=== PATIENT | female | born 1945 | race Caucasian/White ===

== ENCOUNTER 2019-11-11 16:58 | Inpatient (IN) | payer OTHER, SELFPAY ==
[~2019-11-11] VITALS: Ht 147.3 cm; Wt 27.2 kg
[2019-11-11 17:31] VITALS: Ht 147.3 cm; Wt 27.2 kg
--- NOTE | 2019-11-11 17:48 | NUR ---
PT BIB [facility] FROM [facility] AND PLACED IN BED. PER MEDIC, STAFF AT [facility] CALLED 911 DUE TO NOTED LOW O2 SAT. UPON ARRIVAL, PT PLACED ON MONITOR AND DUE TO HX OF RAYNAUDS, 02 SAT PROBE PLACED ON PT'S RT EAR LOBE WITH O2 SAT NOTED TO BE 100%. PT WITH NO C/O FEVER, RESP ILLNESS OR N/V/D/C AT THIS TIME. PT CAME WITH F/C IN PLACE PLATER HELPER DRAINING YELLOW URINE. 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 ALL VS WNL WITH NO SIGNS OF DISTRESS AT THIS TIME. PT NOTED WITH GENERALIZED WEAKNESS DUE TO COMORBITIES AND STATES SHE IS AT [facility] FOR REHAB. RT AND LAB AT BEDSIDE.
[2019-11-11 18:11] LABS: PLATELET COUNT 316 x10^3mcL (130-400)
[2019-11-11 18:18] LABS: RED CELL DISTRIBUTION WIDTH 17.5 % (11.5-14.5)
[2019-11-11 18:24] LABS: CALCIUM 9.2 mg/dL (8.5-10.1); CARBON DIOXIDE 29.9 mmol/L (21-32); CHLORIDE SERUM 104 mmol/L (98-107); CREATININE SERUM 0.6 mg/dL (0.6-1.0); GLUCOSE SERUM 105 mg/dL (74-106); POTASSIUM SERUM 3.9 mmol/L (3.5-5.1); SODIUM SERUM 142 mmol/L (136-145)
[2019-11-11 18:29] LABS: ALKALINE PHOSPHATASE 63 U/L (46-116); ALT/SGPT 29 U/L (14-59); AST/SGOT 26 U/L (15-37); BILIRUBIN TOTAL 0.5 mg/dL (0.20-1.00); LACTIC DEHYDROGENASE (LDH) 125 U/L (100-190)
[2019-11-11 18:30] LABS: C REACTIVE PROTEIN 17.6 mg/dL (<=0.9); TOTAL PROTEIN, SERUM 5.2 g/dL (6.4-8.2)
[2019-11-11 18:54] LABS: BAND NEUTROPHIL 10 % (0-10); METAMYELOCTE 4 % (0-2); MONOCYTE 3 % (0-7); SEGMENTED NEUTROPHILS 78 % (37-75)
[2019-11-11 18:56] LABS: acanthocyte (spur cell) 1+; rbc morphology (normal/abnorm) ABNORMAL (NORMAL)
[2019-11-11 18:57] LABS: PLATELET MORPHOLOGY PLATELETS NORMAL
[2019-11-11 19:24] LABS: UA SPECIFIC GRAVITY 1.015 (1.005-1.035); microscopic required? YES; urine erythrocyte TRACE (NEGATIVE)
--- NOTE | 2019-11-11 19:46 | NUR ---
ASSUMING CARE OF PT AT THIS TIME. PT AWAKE AND ALERT. AA/OX4. RESP EVEN AND UNLABORED. PT DENIES CHEST PAIN OR SOB AT THIS TIME. PT ON MONITOR. MD AWARE OF HEART RATE. WILL CONT TO MONITOR.
--- NOTE | 2019-11-11 21:01 | NUR ---
PT AWAKE AND ALERT. AA/OX4. RESP EVEN AND UNLABORED. DENIES CHEST PAIN OR SOB. LAYING IN POSITION OF COMFORT. WILL CONT TO MONITOR.
--- NOTE | 2019-11-11 22:55 | NUR ---
PT AWAKE AND ALERT. AA/OX4. RESP EVEN AND UNLABORED. STATES THAT SHE IS TIRED. PT ON MONITOR. WILL CO0NT TO MONTIOR.
--- NOTE | 2019-11-11 23:39 | NUR ---
PT RESTING IN POSITION OF COMFORT. EASILY AROUSABLE. RESP EVEN AND UNLABORED. AA/OX4. PT BECOMING AGITATED STATES "IM TIRED AND I WANT TO REST." O2 IS ON PT RIGHT EAR. SATING 100%RA. DENIES CHEST PAIN OR SOB. PT ON MONITOR. WILL CONT TO MONITOR.
[2019-11-11] MEDS ORDERED: DRONABINOL PO (23:55)
[2019-11-11] MEDS ORDERED: PROTONIX40 MG/Pac1 PO (23:56)
[2019-11-11] MEDS ORDERED: ONE-DAILY MULT1 EAC1 PO (23:57)
[2019-11-11] MEDS ORDERED: ZINC SULFATE220 M2 PO (23:57)
[2019-11-11] MEDS ORDERED: MIRALAX17 GM PO (23:57)
[2019-11-11] MEDS ORDERED: ARGINAID POWDE1 EACH PO (23:58)
[2019-11-11] MEDS ORDERED: C500500 MG PO (23:58)
[2019-11-11] MEDS ORDERED: IRON65 MG PO (23:59)
[2019-11-11] MEDS ORDERED: CHOLECALCIFEROL PO (23:59)
[2019-11-12] MEDS ORDERED: KLOR-CON20 MEQ PO
[2019-11-12] MEDS ORDERED: RESTASIS0.051 OP
[2019-11-12] MEDS ORDERED: MEGESTROL (00:02)
--- NOTE | 2019-11-12 00:11 | NUR ---
PROTECTION PATCH NOTED TO COCCYX AREA AND TO LEFT SHOULDER BLADE FOR BED SORE PREVENTION. WILL CONT TO MONITOR.
--- NOTE | 2019-11-12 00:19 | NUR ---
REPORT CALLED TO KRISTIN BRANHAM TO ASSUME CARE OF PT.
[2019-11-12 01:15] VITALS: BP 115/77
--- NOTE | 2019-11-12 01:48 | NUR ---
ADMITTED A 74 YEARS OLD FEMALE FROM [facility],CAME IN VIA GURNEY ACCOMPANIED BYJacqueline R STAFF. ADMITTED WITH C/O SOB AND GENERALIZED BODY WEAKNESS. ANTIBIOTIC GIVEN IN ER AND A BOLUS OF NS 1 LITER. BREATHING EASY AND NONLABOR ON O2 AT 4L VIA NC SATTING AT 98%. TELE#49 ST 112 ON MONITOR, DENIES CHESTPAIN. SCANLON TO GRAVITY DRAINING TEA COLORE URINE. IV TO LFA G 22 HEPLOCK CDI. KEPT IN COMFORT, ORIENTED TO ROOM AND DEVICES. WITH ADMISSION ORDERS TO CARRY. WILL CONTINUE TO MONITOR.
--- NOTE | 2019-11-12 03:10 | NUR ---
APPEAR TO BE SLEEPING AT THIS TIME BREATHING EASY AND NONLABOR. SMALL WOUND TO BACK AND COCCYX WITH REDNESS NOTED. ATTEMPTED TO TAKE PHOTO PATIENT REFUSED THIS TIME AND WANTS TO REST AND SLEEP. WILL TAKEPHOTO IN AM.
[2019-11-12 04:18] LABS: MAGNESIUM 2.1 mg/dL (1.8-2.4); PHOSPHOROUS 3.2 mg/dL (2.5-4.9)
[2019-11-12 04:20] LABS: CHOLESTEROL/HDL RATIO 1.9
--- NOTE | 2019-11-12 05:23 | NUR ---
ATTEMPTED TO TAKE PHOTO OF REDNESS TO COCCYX AND BACK, PATIENT REFUSED. PATIENT STATED" YOU CANNOT DO THAT WITHOUT MY PERMISSION" UN COOPERATIVE WITH CARE.
[2019-11-12 05:25] VITALS: BP 131/93
--- NOTE | 2019-11-12 06:32 | NUR ---
BS CHECKED 25, RECHECKED BS-21, D50 IVP GIVEN PRESCRIBED. DR MORENO MADE AWARE. PATIENT AWAKE AND ALERT. WILL RECHECK BS IN 10 MIN.
--- NOTE | 2019-11-12 06:55 | NUR ---
RECHECKED BS-26 AFTER D [address] JOSH SCOTT WENT TO SEE THE PATIENT. PATIENT NOT RESPONDING WITH EYS BLINKING. VITAL SIGNS TAKEN BP-135/96, HR-116, R-22, SATTING AT 98% ON O2 AT 3L VIA NC. PER DR SCOTT SHE ORDER D5 NS. WILL ENDORSE CARE TO AM SHIFT.
--- NOTE | 2019-11-12 08:13 | NUR ---
first seen, non verbal, responsive to voices by opening eyes, pale looking elderly, very tachy, HR 111-119 this time. bs after one ampule of d50 given, per nitin nurse , 26. d5ns initiated , 75cc /hr. dnr patient
[2019-11-12 09:38] VITALS: BP 102/82
[2019-11-12 10:47] LABS: PLATELET COUNT 365 x10^3mcL (130-400)
[2019-11-12 10:48] LABS: BASOPHIL % 0 % (0-2); ERYTHROCYTE SED RATE 40 mm/hr (0-30); RED CELL DISTRIBUTION WIDTH 17.6 % (11.5-14.5)
--- NOTE | 2019-11-12 11:37 | NUR ---
400CC OF D5NS IN, BS STILL LOW, ANOTHER D50, ONE AMPULE PUSHED. NEEDS D10, INSTEAD OF ABOVE MENTIONED IVF, SUGGESTED TO TEAM, CHANGED IVF NOW. PATIENT BECOMES RESPONSIVE NOW, THOUGH, INCOMPREHENSIBLE, MORE ALERT
--- NOTE | 2019-11-12 11:54 | NUR ---
ALERT ENOUGH TO TAKE 100CC OF OJ, AND D10 INITIATED AT 50CC/HR. WILL CONTINUE TO MONITOR BS
[2019-11-12 12:31] LABS: C REACTIVE PROTEIN 11.7 mg/dL (<=0.9); CALCIUM 8.7 mg/dL (8.5-10.1); CHLORIDE SERUM 107 mmol/L (98-107); CREATININE SERUM 0.6 mg/dL (0.6-1.0); GLUCOSE SERUM 253 mg/dL (74-106); MAGNESIUM 1.8 mg/dL (1.8-2.4); PHOSPHOROUS 2.9 mg/dL (2.5-4.9); SODIUM SERUM 142 mmol/L (136-145)
[2019-11-12 13:01] LABS: FREE T4 0.82 ng/dL (0.76-1.46); FREE THYROXINE INDEX 1.8 ug/dL (1.4-4.5); T4(THYROXINE) 4.7 ug/dL (4.7-13.3)
[2019-11-12 13:23] VITALS: BP 127/83
--- NOTE | 2019-11-12 13:35 | NUR ---
very alert right now, asking for water, and juices, given asked to get food, fed lunch, did not eat much, but at least some. bs slowly up to 50. continues with d10 at 50cc /hr as instructed.
[2019-11-12 14:15] LABS: T3 TOTAL 0.42 ng/mL
--- NOTE | 2019-11-12 17:02 | NUR ---
seen by speech for swallowing eval, per ST, patient pocked food in mouth, NPO now , with ivf running. bs at this time 299, no coverage, in light of her bs lability. Continues with d10 the same rate.
--- NOTE | 2019-11-12 17:07 | NUR ---
PT WAS SEEN FOR DYSPHAGIA. PT WAS GIVEN THE TRIALS OF PUREE DIET. PT WAS POCKETING PUREE DIET TRIALS. PT HAD DIFFICULTY WITH BOLUS MANIPULATION. RECOMMENDATION NOTHING BY MOUTH ALTERNATE MODE OF FEEDING IN CONSULTATION WITH PHYSICIAN.
[2019-11-12 17:16] VITALS: BP 120/84
--- NOTE | 2019-11-12 19:10 | NUR ---
RECIEVED PT FROM DAY SHIFT NURSE. PT A/OX2. PT AWAKE AND ORIENTED TO PERSON/PLACE. ON TELE#49 READING SINUS TACH AT 111. PT ON 3L NC SATING 98%. NO S/S OF ACUTE DISTRESS NOTED. NO C/O PAIN OR DISCOMFORT. SCANLON CATH IN PLACE DRAINING YELLOW URINE BY GRAVITY. PT HAS REDNESS TO COCCYX AREA AND SMALL ULCER TO UPPER BACK WITH ADHESIVE DRESSING. PT NPO DUE TO DYSPHAGIA. IV TO LFA, MINIMAL DRAINAGE NOTED. IV RESECURED AND REDRESSED. CALL LIGHT WITHIN REACH. BED IN LOWEST POSITION. WILL CONTINUE TO MONITOR.
[2019-11-12 21:25] VITALS: BP 120/70
--- NOTE | 2019-11-13 01:00 | NUR ---
PT SLEEPING AT THIS TIME. EASILY AROUSABLE. NO SIGNS OF ACUTE DISTRESS NOTED. RR EVEN AND UNLABORED ON 3L NC. NO COMPLAINTS AT THIS TIME. ALL NEEDS/CONCERNS ADDRESSED THROUGHOUT THE SHIFT. CALL LIGHT WITHIN REACH. WILL CONTINUE TO MONITOR PT.
[2019-11-13 05:30] VITALS: BP 128/87
--- NOTE | 2019-11-13 06:23 | NUR ---
PT SLEEPING AT THIS TIME. NO SIGN OF ACUTE DISTRESS NOTED. PT ON 3L NC, RR EVEN AND UNLABORED. SCANLON CATH IN PLACE DRAINING NIEVES URINE. NO COMPLAINTS AT THIS TIME. IV TO LFA INFUSING D10 AT 50ML/HR, PATENT AND INTACT. CALL LIGHT WTHIN REACH. WILL ENDORSE CARE TO ONCOMING SHIFT NURSE.
--- NOTE | 2019-11-13 07:30 | NUR ---
PT IS AAOX3-4. TELE [address] READING SINUS TACH 115. PT DENIES C/P AND PRESSURE. PT ON O2 N/C AT 3LPM. NO COUGH OR SOB NOTED. SCANLON CATH IN PLACE, PATENT, DRAINING TEA COLORED URINE TO GRAVITY. PT HAS REDNESS TO COCCYX, SMALL WOUND TO UPPER BACK. IVF RUNNING TO LFA. SITE WNL. PT DENIES PAIN. CALL LIGHT WITHIN REACH. BED IN LOWEST POSITION. BED ALARM ON. FALL AND DROPLET PROTOCOL IN PLACE.
[2019-11-13 08:01] VITALS: BP 126/86
[2019-11-13 08:39] LABS: PLATELET COUNT 307 x10^3mcL (130-400)
--- NOTE | 2019-11-13 08:57 | NUR ---
PT NPO AT THIS TIME DUE TO FAILING SWALLOW EVAL. PT PO MEDS HELD, HEPARIN SQ, DECADRON IVP AND ZITHOMAX IVPB GIVEN. NO S/S OF PAIN. RESP EVEN AND UNLABORED. WILL CONTINUE TO MONITOR.
[2019-11-13 09:38] LABS: CALCIUM 8.7 mg/dL (8.5-10.1); CARBON DIOXIDE 25.3 mmol/L (21-32); CHLORIDE SERUM 105 mmol/L (98-107); CREATININE SERUM 0.7 mg/dL (0.6-1.0); GLUCOSE SERUM 113 mg/dL (74-106); MAGNESIUM 1.9 mg/dL (1.8-2.4); PHOSPHOROUS 2.3 mg/dL (2.5-4.9); POTASSIUM SERUM 3.4 mmol/L (3.5-5.1); SODIUM SERUM 141 mmol/L (136-145)
[2019-11-13 09:51] LABS: RED CELL DISTRIBUTION WIDTH 17.5 % (11.5-14.5)
[2019-11-13 11:41] VITALS: BP 129/75
--- NOTE | 2019-11-13 12:13 | NUR ---
BLOOD SUGAR 145. PT DENIES PAIN. PT REPOSTIONED FOR COMFORT. RESP EVEN AND UNLABORED. NO RESP DISTRESS NOTED.
--- NOTE | 2019-11-13 13:44 | NUR ---
REPORTED TO DR. MOTA THAT PT'S K+= 4.3 AND PHOS =2.3. NO NEW ORDERS AT THIS TIME.
--- NOTE | 2019-11-13 14:20 | NUR ---
RECEIVED ORDER FROM DR. POWELL, PT TO BE NPO, PT FAILED SWALLOW EVAL.
[2019-11-13 14:28] LABS: BAND NEUTROPHIL 13 % (0-10); METAMYELOCTE 1 % (0-2); MONOCYTE 3 % (0-7); MYELOCYTE 1 % (0-2)
[2019-11-13 14:29] LABS: PLATELET MORPHOLOGY PLATELETS NORMAL; SEGMENTED NEUTROPHILS 77 % (37-75); acanthocyte (spur cell) 1+; burr cell (echinocyte) 2+; rbc morphology (normal/abnorm) ABNORMAL (NORMAL)
--- NOTE | 2019-11-13 15:19 | NUR ---
REPORTED TO DR. POWELL THAT PT HAS REFUSED US ABDOMEN. RISK AND BENEFITS EXPLAINED TO PT SEVERAL TIMES, PT STILL REFUSED.
[2019-11-13 15:48] VITALS: BP 107/73
--- NOTE | 2019-11-13 16:00 | NUR ---
RECEIVED ORDER FOR DR. POWELL TO D/C D10 AT 50ML AND D/D D10 AT 75ML/HOUR IN 250ML BAG. NEW ORDER FOR D10 IV 75ML/HOUR CONTINUOUSLY IN 1000ML. REPORTED TO DR. POWELL THAT KLOR ARI PO HAS IS STILL ON JUL AND PT IS NPO SO THE ORDER WILL BE NOTED.
--- NOTE | 2019-11-13 16:07 | NUR ---
RECEIVED ORDER FOR DR. POWELL D/C [place] CHAPMAN PO, NEW ORDER KCL 20MEQ IV X 1 WITH LIDOCAINE. ORDER NOTED AND CARRIED OUT. PT MADE AWARE.
--- NOTE | 2019-11-13 17:26 | NUR ---
KCL IVBP INITIATED FOR K+=3.4.
--- NOTE | 2019-11-13 17:27 | NUR ---
BLOOD SUGAR 165. D10 IV FLUIDS AT 75ML INITIATED.
--- NOTE | 2019-11-13 18:49 | NUR ---
RESP EVEN AND UNLABORED. NO DISTRESS NOTED. PT DENIES PAIN. WILL ENDORSE ALL CARE TO NOC RN.
--- NOTE | 2019-11-13 19:27 | NUR ---
RECEIVED PT FROM DAY SHIFT NURSE. PT A/OX3. PT AWAKE AND ABLE TO RESPOND TO QUESTIONS. ON TELE$49 READING SINUS TACH AT 110. RR EVEN AND UNLABORED ON 3L NC. NO S/S OF ACUTE DISTRESS NOTED. SCANLON CATH IN PLACE DRAINING NIEVES URINE BY GRAVITY. PT HAS REDNESS TO COCCYX AREA AND SMALL ULCER TO UPPER BACK WITH ADHESIVE DRSG, CDI. IV TO LFA INFUSING D10 AT 75ML/HR. NO SIGNS OF INFILTRATION NOTED. CALL LIGHT WITHIN REACH. BED IN LOWEST POSITITION. WILL CONTINUE TO MONITOR.
[2019-11-13 20:25] VITALS: BP 107/70
--- NOTE | 2019-11-14 00:35 | NUR ---
PT RESTING IN BED AT THIS TIME. PT C/O NAUSEA, ADMINISTERED ZOFRAN PER JUL. RR EVEN AND UNLABORED ON 3L NC. PT DENIES SOB OR DIFFICULTY BREATHING. SCANLON CATH INTACT. IV TO LFA INFUSING D10 AT 75 ML/HR. NO C/O PAIN OR DISCOMFORT. PT HAS BEEN COOPERATIVE THROUGHOUT THE NIGHT. CALL LIGHT WITHIN REACH. BED IN LOWEST POSITION. WILL CONTINUE TO MONITOR.
[2019-11-14 06:11] VITALS: BP 129/83
--- NOTE | 2019-11-14 06:14 | NUR ---
PT SEEN SLEEPING IN BED AT THIS TIME. RR EVEN AND UNLABORED ON 5L OXYGEN SATING 97%. NO C/O PAIN OR NAUSEA AT THIS TIME. ALL NEEDS/CONCERNS MET THROUGHOUT THE SHIFT. WILL ENDORSE CARE TO ONCOMING SHIFT NURSE.
--- NOTE | 2019-11-14 07:15 | NUR ---
RECEIVED PT FROM INSIDE SALES SUPERVISOR, AOX3, CONFUSED AT TIMES. TELE 49 ST. LUNGS DIMINSIHED AT 5L NC, O2 AT 98, DENIES SOB/COUGH AT THE TIME, RESP E/U. ABDOMEN SOFT/FLAT, DENIES N/V/D AT THE TIME, PREVIOUS EPISODE OF NAUSEA. POSSIBLE PEG TUBE PLACEMENT. SCANLON CATHETER IN PLACED, DRAINING TEA COLORED URINE. PT NOTED VERY WEAK AND WITH LOSS OF MUSCLE MASS/WEIGHT. REDNESS TO COCCYX, ULCER TO UPPER BACK WITH ADHESIVE DRESSING. DENIES PAIN AT THIS TIME. IV TO RFA INFUSING D10 AT 75 ML/HR TO PREVENT HYPOGLYCEMIA. CALL LIGHT IN REACH, WILL CONTINUE TO MONITOR.
[2019-11-14 07:51] VITALS: BP 119/77
[2019-11-14 08:03] LABS: PLATELET COUNT 267 x10^3mcL (130-400)
[2019-11-14 08:17] LABS: RED CELL DISTRIBUTION WIDTH 17.2 % (11.5-14.5)
[2019-11-14 08:25] LABS: C REACTIVE PROTEIN 5.5 mg/dL (<=0.9); CALCIUM 8.1 mg/dL (8.5-10.1); CARBON DIOXIDE 25.7 mmol/L (21-32); CHLORIDE SERUM 103 mmol/L (98-107); CREATININE SERUM 0.5 mg/dL (0.6-1.0); GLUCOSE SERUM 107 mg/dL (74-106); MAGNESIUM 1.7 mg/dL (1.8-2.4); PHOSPHOROUS 1.9 mg/dL (2.5-4.9); SODIUM SERUM 136 mmol/L (136-145)
--- NOTE | 2019-11-14 08:40 | NUR ---
PT DID NOT RECEIVE PO MEDICATION SHE IS NPO.
[2019-11-14 09:29] LABS: C REACTIVE PROTEIN 5.2 mg/dL (<=0.9)
[2019-11-14 11:29] VITALS: BP 120/75
--- NOTE | 2019-11-14 14:37 | NUR ---
Initial Nutrition Assessment: Ashlyn Masterson Dx: UTI, COPD, Dehydration, r/o COVID-19 PMHx: UTI ,COPD, Sjogren's syndrome, raynaud's disease, osteoperosis PSHx: pt refused to answer Labs: (11/13) BH, Ca:8.1, Phos:1.9L, M.7L, H/H:9/28L Meds: Bactroban, Decadron, D10%, Megace, Remeron, Rocephin, NS IV, Theragran, Vitamin C, Zinc sulfate, Zithromax, Zofran and Heparin Diet: NPO unable to pass swallow evaluation, previously on pureed diet PO Intakes: (11/11) B:0% L:50% (11/12) NPO (11/13) NPO Ht: 4'10" Wt:60#,27kg BMI: 12.5kg/m2 (underweight) IBW: 90#41kg %IBW:66% UBW: unable to assess Age: 74 y/o female Food Allergies: NKFA Skin: redness to coccyx, small wound to upper back Ulysses:11 Edema: none GI: active bowel sounds Last BM:11/12 Per H&P, pt was not cooperative and refused H&P, [facility] Pt was brought in from [facility] for evaluation of desaturation. Per progress note 11/12, pt's hypoglycemia has improved since yesterday, was given D10. Pt was slightly hypokalemic and 10meq potassium was given. PPN is ordered to address low kcal intake. Doctor to talk to family about possible jail TPN/PEG tube placement. Psych consulted for possible eating disorder. SW spoke to patient's sister who claims pt has unreasonable fear of all kinds of food and refuses to eat anything. Pt was like this at [facility]. Per Speech therapist note 11/11: pt seen for dysphagia and was given trial of pureed diet and was pocketing food and had difficulty with bolus manipulation. Recommend: NPO and alternate mode of feeding in consultation with physician. Nursing Trigger: Appears underweight/malnourished, unintentional wt loss>10# in past month, admitted with potential risk dx Problem with: N/V/D/C: No Problems with: Chewing/Swallowing: yes, per swallow evaluation Current appetite: N/A due to current NPO status Recent wt changes: %wt change: Vitamin/Supplement: One-Daily MVI, Ascorbic acid, Zinc sulfate. Ferrous sulfate, KCL, Megace, Special Diet at Home: unable to obtain Physical activity: unable to obtain Education: unable to provide as pt refused Estimated Nutritional Needs Based on ideal body weight of 41 kg. Energy: 8919-9045 kcal/d (30-35 kcal/kg for underweight status) Protein: 62-82gm/d (1-.5-2.0gm/kg for underweight status) Fluid: 1230-1435mL/d (1 mL/kcal) or per MD. Nutrition Diagnosis 1. Swallowing difficulty related to pocketing food and having difficulty with bolus manipulation as evidenced by pt failing swallow evaluation. 2. Disordered eating pattern related to unreasonable fear of all kinds of food as evidenced by BMI: 12.5 and refusing to eat anything. Intervention 1. Recommend continue NPO due to pending PEG placement. 2. If PPN is to be started, recommend D: 10% AA:4.25% at 60ml/hr. This provides: 144g FZE=[id number], 61g vomziui=[id number]=518islp. This meets 60% caloric needs and 98% protein needs. GIR: 3.7mg/kg/min. 3. Pt is at risk of refeeding syndrome, monitor and replete electrolytes. Monitor/Evaluate Goal: NPO<3 days, PPN to meet 80% caloric needs. Monitor: NPO status, PPN intake/tolerance, Labs, GI function, Skin integrity, Weights. F/U in 2-3 days as high risk (11/15-)
--- NOTE | 2019-11-14 14:37 | NUR ---
1. Recommend continue NPO due to pending PEG placement. 2. If PPN is to be started, recommend D: 10% AA:4.25% at 60ml/hr. This provides: 144g AWC=344pyzz, 61g zdijaga=364yfxi=536wfjj. This meets 60% caloric needs and 98% protein needs. GIR: 3.7mg/kg/min. 3. Pt is at risk of refeeding syndrome, monitor and replete electrolytes.
[2019-11-14 14:41] LABS: BAND NEUTROPHIL 15 % (0-10); METAMYELOCTE 1 % (0-2); MONOCYTE 3 % (0-7); MYELOCYTE 1 % (0-2); SEGMENTED NEUTROPHILS 76 % (37-75); rbc morphology (normal/abnorm) ABNORMAL (NORMAL)
[2019-11-14 14:42] LABS: PLATELET MORPHOLOGY PLATELETS NORMAL; acanthocyte (spur cell) 1+; burr cell (echinocyte) 1+
[2019-11-14 15:57] VITALS: BP 118/71
--- NOTE | 2019-11-14 19:22 | NUR ---
RECEIVED PT FROM DAY SHIFT NURSE. AOX3, CONFUSED AT TIMES. RESPONDS TO VERBAL COMMANDS. TELE 49 ST. LUNGS DIMINSIHED AT 5L NC, O2 AT 98, DENIES SOB/COUGH AT THE TIME, RESP EVEN AND UNLABOED. DENIES N/V AT THE TIME, PREVIOUS EPISODE OF NAUSEA. POSSIBLE PEG TUBE PLACEMENT. SCANLON CATHETER IN PLACED, DRAINING TEA COLORED URINE. PT NOTED VERY WEAK AND WITH LOSS OF MUSCLE MASS/WEIGHT. REDNESS TO COCCYX, ULCER TO UPPER BACK WITH ADHESIVE DRESSING. DENIES PAIN AT THIS TIME. IV TO RFA INFUSING D10 AT 75 ML/HR TO PREVENT HYPOGLYCEMIA. CALL LIGHT IN REACH, WILL CONTINUE TO MONITOR.
[2019-11-14 20:31] VITALS: BP 98/78
--- NOTE | 2019-11-15 | NUR ---
PTS 0000 BS IS 58. RESIDENTS MADE AWARE. D50 PUSHED. PTS NEW BP 318. PPN INFUSING AT 60ML/HR. PT AWAKE AND RESPONDING TO VERBAL COMMANDS. WILL CONTINUE TO MONITOR.
--- NOTE | 2019-11-15 01:30 | NUR ---
PT SLEEPING AT THIS TIME. NO SIGNS OF ACUTE DISTRESS NOTED. RR EVEN AND UNLABORED ON 5LNC. NO SOB OR DIFFICULTY BREATHING NOTED. PPN INFUSING AT 60 ML/HR. CALL LIGHT WITHIN REACH. WILL CONTINUE TO MONITOR.
[2019-11-15 05:28] VITALS: BP 108/69
--- NOTE | 2019-11-15 06:04 | NUR ---
PT AWAKE IN BED, WATCHING TV. NO SIGNS OF ACUTE DISTRESS NOTED. RR EVEN AND UNLABOED ON 5LNC. PT DENIES SOB OR DIFFICULTY BREATHING. SCANLON CATH IN PLACE DRAINING YELLOW URINE. PPN INFUSING AT 60ML/HR, NO INFILTRATIONS NOTED. IV PATENT AND INTACT. NO C/O PAIN OR DISCOMFORT. CALL LIGHT WITHIN REACH. WILL ENDORSE CARE TO ONCOMING SHIFT NURSE.
[2019-11-15 07:58] LABS: BASOPHIL % 0.1 % (0-2); PLATELET COUNT 242 x10^3mcL (130-400); RED CELL DISTRIBUTION WIDTH 17.5 % (11.5-14.5)
[2019-11-15 08:14] LABS: ALKALINE PHOSPHATASE 67 U/L (46-116); ALT/SGPT 33 U/L (14-59); AST/SGOT 32 U/L (15-37); BILIRUBIN TOTAL 0.32 mg/dL (0.20-1.00); CALCIUM 7.9 mg/dL (8.5-10.1); CARBON DIOXIDE 22.5 mmol/L (21-32); CHLORIDE SERUM 103 mmol/L (98-107); CREATININE SERUM 0.4 mg/dL (0.6-1.0); GLUCOSE SERUM 102 mg/dL (74-106); MAGNESIUM 1.9 mg/dL (1.8-2.4); PHOSPHOROUS 2.1 mg/dL (2.5-4.9); POTASSIUM SERUM 3.2 mmol/L (3.5-5.1); SODIUM SERUM 136 mmol/L (136-145)
[2019-11-15 08:21] LABS: ALBUMIN 1.4 g/dL (3.4-5.0); TOTAL PROTEIN, SERUM 4.5 g/dL (6.4-8.2)
[2019-11-15 09:31] VITALS: BP 113/87
--- NOTE | 2019-11-15 10:46 | NUR ---
AAO TO SELF. TELE # [address] LUNGS DIMINISHED BILATERALLY. O2 SAT ON 5L NC IS 94%. BS'S ACTIVE TIMES 4. STEPHENS, BEDREST. BS'S ACTIVE TIMES 4. IV SITES CDI TO RAC AND RFA. PERIPHERAL PULSES PALPABLE. NO EDEMA. SCANLON CATH DRAINING NIEVES URINE TO BSD. ON AIR MATTRESS. OPTIFOAM TO SACRAL/COCCYGEAL AREA CDI. UNCOOPERATIVE AT TIMES, CONFUSED. NO C/O PAIN.
[2019-11-15 13:06] VITALS: BP 103/68
--- NOTE | 2019-11-15 14:55 | NUR ---
DR HOPE NOT AVAILABLE, I CALLED THE CALL PHONE [phone], DR KATE OSEGUERA, I NOTIFIED HER OF PATIENT'S SERUM K OF 3.2, SHE SAID "THATS OK".
[2019-11-15 17:25] VITALS: BP 111/85
--- NOTE | 2019-11-15 17:31 | NUR ---
AAO TO SELF, CONFUSED. TELE # 49 ST. O2 5L NC. SCANLON CATH DRAINED 1000 ML OF TEA COLORED URINE TO BSD. IV SITES TO RFA AND RAC CDI. PPN INFUSING AT 60 ML PER HOUR. PHARMACY ORDERED ANOTHER PPN FOR TOMORROW.
--- NOTE | 2019-11-15 20:35 | NUR ---
PT. RESTING WELL, ORIENTED TO SELF. CONFUSED AT TIMES. ABLE TO FOLLOW SOME SIMPLE COMMANDS. SPEECH SLOW BUT CLEAR. DENIES HEADACHE OR DIZZINESS. BREATH SOUNDS DIMINISHED CRISPIN. RESP. EVEN, UNLABORED. PT. ON 5L/NC. DENIES CHETPAIN OR DISCOMFORT. NO EDEMA NOTED TO BLE. PEDALPULSES MODERATE. PT VERY THIN, APPEARS MALNOURISHED. ABD. SOFT AND ROUND, BOWEL SOUNDS ACTIVE. IV SITE INTACT. BED LOW LAYING. CALL LIGHT WITHIN REACH.
--- NOTE | 2019-11-15 20:38 | NUR ---
DR. Mary PIMENTEL TO UNIT. STATED THAT SHE SPOKE WITH DR. Orlando LAW REGARDING POSSIBLE PEG PLACEMENT TOMORROW. DR. PIMENTEL WAS ABLE TO SPEAK WITH THE PATIENT'S SISTER, INOCENCIO, WHO WAS MADE AWARE OF THE NEED FOR NUTRITION THROUGH PEG PLACEMENT. PER DR. PIMENTEL, INOCENCIO AGREED. CHARGE NURSE MADE AWARE.
[2019-11-15 21:32] VITALS: BP 130/86
--- NOTE | 2019-11-15 23:00 | NUR ---
PT. TRANSFERRED TO [facility] WITH BELONGINGS. REPORT GIVEN TO NORA. MEDICATION GIVEN.
--- NOTE | 2019-11-15 23:00 | NUR ---
ASSUMED CARE OF THIS PATIENT, PATIENT TRANSFERRED FROM [facility] VIA BED WITH BELONGINGS AND CHART. PATIENT IS ALERT AND ORIENTED X2, FORGETFUL AND CONFUSED AND DISORIENTED, RE-ORIENTED TO PLACE AND ROOM NUMBER AND BED,INTRODUCE SELF TO PATIENT BEING THE RN TONIGHT. RT AC IV SITE NO SIGN OF INFILTRATION, RECEIVING PPN AT 60ML/HR VIA PUM. PATIENT EMACIATED, ON AIR MATTRESS. PLACED ON 5LNC. SCANLON CATHETER DRAINING YELLOW UA. SAFETY/FALL PRECAUTIONS MAINTAINED. WILL CONTINUE TO MONITOR.
--- NOTE | 2019-11-16 06:00 | NUR ---
PATIENT BS CHECKED WAS 26 AND REPEATED RESULT WAS27, PROTOCOL INITIATED, PATIENT RESPONSIVE AND TALING. WILL NOTIFY MD. AND WILL RE-CHECK BS IN 15 MINS.
[2019-11-16 06:17] VITALS: BP 142/90
--- NOTE | 2019-11-16 06:22 | NUR ---
RE-CHECKED BLOOD SUGAR WAS 33, REPEATED WAS 42, COVERED WITH 1 AMP D50 IVP. WILL NOTIFY MD. PATIENT REMAINED RESPONSIVE AND TALKING. WILL CONTINUE TO MONITOR.
--- NOTE | 2019-11-16 06:33 | NUR ---
DR GAMEZ MADE AWARE ABOUT CURRENT BLOOD SUGAR AND ALSO INTERVENTION INITIATED.
--- NOTE | 2019-11-16 06:45 | NUR ---
BS RE-CHECKED, INSTEAD OF POKING TIP OF FINGER POKED THUMB HIGH APRT, SUGAR WAS 123.
--- NOTE | 2019-11-16 07:04 | NUR ---
PATIENT SLEPT OFF AND ON DURING THE SHIFT. TURNED AND REPOSITIONED. MWAS INCONTINENT OF STOOL X2 SMALL BROWN COLORED SOFT STOOL, CLEANED AND KEPT DRY. CHANGED OPTIFOAM TO SACARAL REGION. SCANLON CATHETER CARE DONE THIS TIME. CHLORHEXIDINE WIPE DONE THIS AM IN PREPARATION TO SURGICAL PROCEDURE EGD/PEG. IV SITES TO RT FA X2 INTACT AND PATENT, RECEIVING PPN AT 60 ML/HR. ORAL CARE DONE. SAFETY/FALL PRECAUTIONS OBSERVED AND MAINTAINED. WILL ENDORSE CONTINUITY OF CARE TO INCOMING NURSE.
--- NOTE | 2019-11-16 07:40 | NUR ---
RECEIVED PATIENT RESTING IN BED, NO ACUTE DISTRESS NOTED. PATIENT AAOX1, WITH CONFUSION. TELE MONITOR IN PLACE, DENIES CP. LUNG SOUNDS DIMINISHED TO CRISPIN BASES, DENIES SOB ON 5L NC. SCANLON CATH INTACT AND DRAINING TO GRAVITY. GENERALIZED WEAKNESS NOTED, PATIENT BEDBOUND AND REPOSITION Q2HR AND PRN. OPTIFOAM APPLIED TO SACRAL AREA. PPN INFUSING AT 60ML/HR. CALL LIGHT WITHIN REACH, BED IN LOW POSITION, WILL CONTINUE TO MONITOR.
--- NOTE | 2019-11-16 08:46 | NUR ---
DR. PACE PAGED AT THIS TIME, TO RECEIVE A RATE FOR D10 FOR TPN INTERRUPTION
[2019-11-16 09:21] VITALS: BP 103/70
--- NOTE | 2019-11-16 09:50 | NUR ---
PATIENT IV TO RAC BEGAN TO LEAK, IV TO RAC REMOVED CATH INTACT. NEW IV INSERTED TO LFA X1 ATTEMPT, IV SITE CDI & PATENT. WILL CONTINUE TO MONITOR.
--- NOTE | 2019-11-16 09:55 | NUR ---
DR. LAW AT BEDSIDE, SPOKE WITH PATIENT REGARDING PLAN OF CARE, PATIENT AWARE DR. LAW WANTED TO PLACE A PEG TUBE, PATIENT STATED SHE DOES NOT WANT A PEG TUBED PLACED.
[2019-11-16 11:35] LABS: CALCIUM 7.6 mg/dL (8.5-10.1); CHLORIDE SERUM 105 mmol/L (98-107); CREATININE SERUM 0.3 mg/dL (0.6-1.0); GLUCOSE SERUM 111 mg/dL (74-106); POTASSIUM SERUM 3.1 mmol/L (3.5-5.1); SODIUM SERUM 139 mmol/L (136-145)
--- NOTE | 2019-11-16 12:00 | NUR ---
IV TO LFA BECAME INFILTRATED, IV SITE APPEARED SWOLLEN, IV TO LFA REMOVED CATH INTACT. ICE APPLIED AND ELEVATED WITH A PILLOW. PATIENT REFUSING NEW IV AT THIS TIME.
[2019-11-16 13:06] LABS: C-PEPTIDE 4.4 ng/mL (1.1-4.4)
[2019-11-16 13:30] VITALS: BP 107/61
--- NOTE | 2019-11-16 15:04 | NUR ---
DR. MUSTAFA AWARE PATIENT REFUSING K PO, DR. MUSTAFA WILL ORDER FOR K LIQUID. WILL FOLLOW UP IF PATIENT IS STILL UNWILLING TO TAKE.
[2019-11-16 17:30] VITALS: BP 110/60
--- NOTE | 2019-11-16 17:30 | NUR ---
PATIENT REFUSING TO TAKE POTASSIUM, PATIENT STATED SHE DOES NOT WANT IT AND TO DOCUMENT THAT SHE DIDNT WANT IT. PATIENT REFUSING A NEW IV ACCESS, PATIENT STATED SHE DOES NOT WANT TO BE POKED ANYMORE FOR TODAY. DR. KATELYNN DIEGO AT THIS TIME, WILL FOLLOW UP
--- NOTE | 2019-11-16 19:30 | NUR ---
ENDORSED ALL CARE TO NIGHT RN, RN AWARE PATIENT REFUSED K PO, AND RESIDENT WAS PAGED BUT NO RESPONSE, RN TO FOLLOW UP WITH RESIDENT.
[2019-11-16 21:29] VITALS: BP 95/65
[2019-11-17 06:01] VITALS: BP 95/56
--- NOTE | 2019-11-17 07:30 | NUR ---
PT ENDORSE TO ME THIS MORNING, LAYING IN BED RESTING, AA/O X 1 TO NAME/ CONFUSE AND DISORIENTED. BREATHING EVEN AND UNLABORED ON 5L NC/ NO ACUTE RESP DISTRESS OR SOB NOTED. TELE 49 ST NOTED HR 110-120S/ NO SIGN OF CP OR PRESSURE. BOWEL SOUNDS ACTIVE IN ALL FOUR QUADS. PER NIGHT NURSE FAMILY IS REFUSING PEG TUBE PLACEMENT/ PT REMAINS NPO AND REMAINS ON TPN AT 60 ML/HR, IV TO THE LFA INTACT. SCANLON INTACT AND PATENT/ DRAINING TO GRAVITY. CALL LIGHT IN REACH. BED IN LOW POSITIION. X2 SIDE RAILS UP/ BED ALARM ON. WILL CONTINUE TO MONITOR.
[2019-11-17 07:59] LABS: PLATELET COUNT 171 x10^3mcL (130-400)
[2019-11-17 08:08] VITALS: BP 103/70
[2019-11-17 08:08] LABS: RED CELL DISTRIBUTION WIDTH 17.2 % (11.5-14.5)
[2019-11-17 08:36] LABS: CALCIUM 7.3 mg/dL (8.5-10.1); CARBON DIOXIDE 22.6 mmol/L (21-32); CHLORIDE SERUM 106 mmol/L (98-107); CREATININE SERUM 0.4 mg/dL (0.6-1.0); GLUCOSE SERUM 70 mg/dL (74-106); PHOSPHOROUS 2.3 mg/dL (2.5-4.9); POTASSIUM SERUM 3.5 mmol/L (3.5-5.1); SODIUM SERUM 141 mmol/L (136-145)
[2019-11-17 11:30] LABS: BAND NEUTROPHIL 2 % (0-10); MONOCYTE 4 % (0-7); SEGMENTED NEUTROPHILS 88 % (37-75)
[2019-11-17 11:32] LABS: burr cell (echinocyte) 1+; rbc morphology (normal/abnorm) ABNORMAL (NORMAL)
--- NOTE | 2019-11-17 13:20 | NUR ---
PT REMAINS ON TPN AT 60 ML/HR TOLERATING WELL, NO ACUTE RESP DISTRESS OR SOB NOTED/ REMAINS ON 5L NC SATING 93-96%. CURRENT BS 113 / WILL CONTINUE TO MONITOR.
[2019-11-17 13:34] VITALS: BP 122/77
--- NOTE | 2019-11-17 15:27 | NUR ---
Follow-up Nutrition Assessment: 239B FEDE ROMEO 74F HR Dx: UTI, COPD, Dehydration, r/o COVID-19 PMHx: UTI, COPD, Sjogren's syndrome, raynaud's disease, osteoperosis Labs: (11/16) BG 70L, BUN 23H, Cr 0.4L, phos 2.3L, H/H 8.1/25 Meds: Decadron, Megace, Remeron, Rocephin, PPN, Theragran, Vitamin C, Zinc sulfate, Zithromax PRN meds: D50%, Humulin, Ventolin, Zofran Diet: NPO for procedure PPN: D 10% AA:4.25% at 60ml/hr. PPN infused (11/16) 620ml, (11/15) 720ml Weights: (11/16) 60#/27kg Edema: none noted Last BM: 11/13 Skin: Blanchable erythema to sacro-coccyx, pressure injury to left upper back per skin assessment on 11/11 Ulysses: [address] note (11/13): Per progress note 11/12, pt's hypoglycemia has improved since yesterday, was given D10. Pt was slightly hypokalemic and 10meq potassium was given. PPN is ordered to address low kcal intake. Doctor to talk to family about possible terminal makeup operator TPN/PEG tube placement. Psych consulted for possible eating disorder. SW spoke to patient's sister who claims pt has unreasonable fear of all kinds of food and refuses to eat anything. Pt was like this at [facility]. Per Speech therapist note 11/11: pt seen for dysphagia and was given trial of pureed diet and was pocketing food and had difficulty with bolus manipulation. Recommend: NPO and alternate mode of feeding in consultation with physician. RD Note (11/16): Per progress note (11/15), pt currently on 5L NC, and pt failed swallow evaluation, so pt is still pending PEG tube. Pt was lying in bed during bedside visit. Pt first refused to talk to RDN and said she's vegan. Pt changed her mind and started responding to RD. Per pt, she did not have any GI distress, but she felt dizzy. Pt appeared to be confused, and pt reported her weight being six pounds. During follow-up assessment, signs of muscle wasting was observed in pt's [place] region and Clavicle region. Consult received to assess and increase pt's PPN d/t low blood sugar. Estimated Nutritional Needs Based on ideal body weight of 41 kg. Energy: 1608-2746 kcal/d (30-35 kcal/kg for underweight status) Protein: 62-82gm/d (1-.5-2.0gm/kg for underweight status) Fluid: 1230-1435mL/d (1 mL/kcal) or per MD. Nutrition Diagnosis: (ongoing) 1. Swallowing difficulty related to pocketing food and having difficulty with bolus manipulation as evidenced by pt failing swallow evaluation. (ongoing) 2. Disordered eating pattern related to unreasonable fear of all kinds of food as evidenced by BMI: 12.5 and refusing to eat anything. Intervention: 1. Recommended increase PPN rate to 80ml/hr as tolerate. PPN D10%, AA 4.25% at 80ml/hr will provide a volume of 1920ml, 979kcal, 82g protein and GIR: 4.9mg/kg/min. This will meet 80% of estimated kcal needs and 100% of estimated protein needs. Recommendation provided to Pharmacy, Dr. Garcia, and pt's RN. Discussed concerned regarding refeeding syndrome with Dr. Garcia and pt's primary RN. Pt's electrolytes will be monitor closely. Monitor/Evaluate: Goal: Have pt meet at least 75% of estimated needs via nutrition support (not met, ongoing goal) Monitor: Nutrition support tolerance, Labs (glucose, phosphorus, potassium, magnesium), GI function F/U in 2-3 days as high risk 11/18-
[2019-11-17 16:32] VITALS: BP 115/72
--- NOTE | 2019-11-17 18:51 | NUR ---
NO ACUTE CHANGES AT THIS TIME, NO ACUTE RESP DISTRESS OR SOB NOTED. REMAINS ON TPN AT 60 ML/HR TO THE LFA TOLERATING WELL. SCANLON INTACT AND PATENT/ DRAINING TO GRAVITY/ LIGHT NIEVES COLOR NOTED= TOTAL OUTPUT 450ML. WILL ENDORSE TO INCOMING RN.
--- NOTE | 2019-11-17 19:30 | NUR ---
PT RECEIVED A/O X1-2, ABLE TO FOLLOW SIMPLE COMMANDS. TELE #49, SINUS TACH, DENIES ANY CP/PRESSURE. PULSES PALPABLE, NO EDEMA PRESENT. LUNG SOUNDS DIM TO CRISPIN BASES, BREATHING IS EVEN AND UNLABORED ON 5L NC, NO RESP DISTRESS NOTED. ABD SOFT AND FLAT, NO N/V PRESENT. SCANLON CATH DRAINING TO GRAVITY W/ YELLOW URINE NOTED. GENERALIZED WEAKNESS, BED BOUND, ON AIR MATTRESS, TURN AND REPOSITION Q2H, WEDGE IN PLACE FOR POSITIONING. PT DENIES HAVING ANY PAIN AT THIS TIME. PPN INFUSING WELL TO LFA, PATENT AND INTACT, SITE WNL. NO ACUTE DISTRESS NOTED. BED ALARM ON. BED IN LOWEST SETTING, SIDE RAILS UP X2, CALL LIGHT WITHIN REACH. WILL CONT TO MONITOR.
[2019-11-17 19:52] VITALS: BP 95/65
--- NOTE | 2019-11-17 22:00 | NUR ---
RECEIVED CALL FROM ILIANA FROM [facility], PER ILIANA, WILL BE ABLE TO DO VQ SCAN TOMORROW @ 0800.
[2019-11-18] VITALS (8 sets, daily range): BP systolic 90–134; BP diastolic 54–85
--- NOTE | 2019-11-18 02:50 | NUR ---
PT RESTING IN BED WITH EYES CLOSED, BUT IS EASILY AROUSABLE. BREATHING IS EVEN AND UNLABORED ON 5L NC, NO RESP DISTRESS NOTED. PT HAD LOOSE BM X1, BROWN. PT CLEANED AND REPOSITIONING. PPN INFUSING WELL, SITE WNL. NO ACUTE DISTRESS NOTED. WILL CONT TO MONITOR.
--- NOTE | 2019-11-18 06:02 | NUR ---
PT IN NO ACUTE DISTRESS. CONT OF CARE ENDORSED TO TREVER [place]. ALL QUESTIONS AND CONCERNS ADDRESSED.
--- NOTE | 2019-11-18 06:34 | NUR ---
RECEIVED PATIENT FROM PREVIOUS NURSE. PATIENT IN NO ACUTE DISTRESS. TELE #[address] 5L NC IN PLACE, EVEN AND UNLABORED BREATHING. NO C/O OF PAIN AT THIS MOMENT. NO CHEST PAIN OR CHEST PRESSURE. SCANLON IN PLACE DRAINING TO GRAVITY. PATIENT IS BED BOUND ON AN AIR MATRESS. OPTIFOAM IN SACRUM AREA AND UPPER BACK, CDI. PPN INFUSING WELL. IV WNL. PATENT AND INTACT. BED IN LOWEST POSITION. CALL LIGHT WITHIN REACH. WILL ENDORSE CARE TO ONCOMING SHIFT. WILL CONTINUE TO MONITOR.
--- NOTE | 2019-11-18 07:30 | NUR ---
PT ENDORSE TO ME THIS MORNING, LAYING IN BED RESTING, ALERT TO NAME AND CONFUSE MOST TIMES. BREATHING EVEN AND UNLABORED ON 5L NC NO ACUTE RESP DISTRESS OR SOB NOTED. TELE 49/ ST HR 107 NOTED/ NO SIGN OF CP OR PRESSURE NOTED. SCANLON INTACT AND PATENT DRAINING TO GRAVITY/ YELLOW URINE NOTED. BEDBOUND ON AIR MATTRESS. IV TO THE LAC INTACT AND PATENT/ TPN INFUSING AT 80 ML/HR TOLERATING WELL. CALL LIGHT IN REACH. BED IN LOW POSITION. BED ALARM ON. WILL CONTINUE TO MONITOR.
[2019-11-18 07:58] LABS: CALCIUM 7.5 mg/dL (8.5-10.1); CARBON DIOXIDE 24.6 mmol/L (21-32); CHLORIDE SERUM 105 mmol/L (98-107); CREATININE SERUM 0.5 mg/dL (0.6-1.0); GLUCOSE SERUM 113 mg/dL (74-106); PHOSPHOROUS 2.7 mg/dL (2.5-4.9); SODIUM SERUM 141 mmol/L (136-145)
[2019-11-18 08:12] LABS: BASOPHIL % 0.1 % (0-2); PLATELET COUNT 175 x10^3mcL (130-400)
[2019-11-18 08:13] LABS: RED CELL DISTRIBUTION WIDTH 17.4 % (11.5-14.5)
[2019-11-18 08:45] LABS: POTASSIUM SERUM 2.8 mmol/L (3.5-5.1)
--- NOTE | 2019-11-18 10:17 | NUR ---
PATIENT REFUSED THE ECHO.
--- NOTE | 2019-11-18 17:45 | NUR ---
COVID TEST COMPLETE
--- NOTE | 2019-11-18 18:37 | NUR ---
RESIDENT DR. PIMENTEL MADE AWARE OF K 2.8 AND THAT PT HAD SLIGHT BLEEDING IN HER LIP AND INNER MOUTH/ APPLIED PRESSURE WITH 4X4 AND BLEEDING STOPPED. WILL CONTINUE TO MONITOR.
--- NOTE | 2019-11-18 18:37 | NUR ---
NO ACUTE CHANGES AT THIS TIME, NO ACUTE RESP DISTRESS OR SOB NOTED/ REMAINS ON 5L NC SATING AT 91-93 % DENIES ANY CP OR PRESSURE. TPN CONTINUES TO INFUSE AT 80 ML/HR TOLERATING WELL IN NEW IV NAV. WILL ENDORSE TO INCOMING RN.
--- NOTE | 2019-11-18 19:39 | NUR ---
RECIEVED PT FROM PREVIOUS SHIFT NURSE. PT RESTING IN BED W/ HOB ELEVATED, ABLE TO FOLLOW SIMPLE COMMANDS, AND NO FACIAL DROOPING NOTED, AOX2 W/ SLIGHT PERIODS OF CONFUSION, SISTER AT BEDSIDE. RR EVEN AND UNLABORED ON 5L/NC, CHEST RISING EQUALLY. TELE #49 ST. NO SIGNS OF ACUTE CHANGE OR DISTRESS NOTED. IV NAV WNL, NO ERYTHEMA, EDEMA, OR DRAINAGE NOTED, PPN RUNNING AT 80ML/HR. OPTIFOAM NOTED TO UPPER BACK AND SACRAL-BUTTOCK AREA. SCANLON CATHETER NOTED, DRAINING YELLOW URINE TO GRAVITY. BED IN LOWEST POSITION, SIDE RAILS UP X2, AND CALL LIGHT WITHIN REACH. WILL CONTINUE TO MONITOR.
--- NOTE | 2019-11-19 00:17 | NUR ---
PT RESTING COMFORTABLY IN BED, EASILY AROUSABLE. RR EVEN AND UNLABORED ON 5L/NC, CHEST RISING EQUALLY. TELE #49 ST. NO SIGNS OF ACUTE CHANGE OR DISTRESS NOTED. IV NAV WNL, DRESSING CDI, NO ERYTHEMA, EDEMA, OR DRAINAGE NOTED, PPN RUNNING AT 80ML/HR. BED IN LOWEST POSITION, CALL LIGHT WITHIN REACH, SIDE RAILS UP X2. WILL CONTINUE TO MONITOR.
[2019-11-19 04:05] VITALS: BP 108/68
--- NOTE | 2019-11-19 04:09 | NUR ---
ATTEMPTED TO TURN Q2 OR PRN, PT REFUSES. ONLY ALLOWS TO TURN WHEN CLEANING.
--- NOTE | 2019-11-19 06:21 | NUR ---
PT RESTING COMFORTABLY IN BED, EASILY AROUSABLE. RR EVEN AND UNLABORED ON 5L/NC, CHEST RISING EQUALLY. NO SIGNS OF ACUTE CHANGE OR DISTRESS NOTED. TELE #49 NSR. NO SIGNS OF ACUTE CHANGE OR DISTRESS NOTED. IV NAV WNL, NO ERYTHEMA, EDEMA, OR DRAINAGE NOTED, PPN RUNNING AT 80ML/HR. BED IN LOWEST POSITION, SIDE RAILS UP X2, AND CALL LIGHT WITHIN REACH. WILL ENDORSE CARE TO ONCOMING SHIFT NURSE, AND WILL CONTINUE TO MONITOR.
--- NOTE | 2019-11-19 06:29 | NUR ---
TEMP: 100.3, MEDICATED PER MAR. WILL CONTINUE TO MONITOR.
--- NOTE | 2019-11-19 07:10 | NUR ---
RECEIVED PT FROM NIGHT RN. PT RESTING IN BED AWAKE AND ALERT. PT CONFUSED. RES E/U, DENIES SOB ON 5 LPM NC NOTED. TELE MONITOR 49 SHOWING SR, DENIES CP/PRESSURE. PERIPHERAL PULSES PALPABLE W NO EDEMA NOTED. ABDOMEN SOFT. POOR APPETITE PER REPORT. NPO AWAITING FOR SWALLOW EVAL. SCANLON CATHETER DRAINING TO GRAVITY W NIEVES URINE NOTED. PT BEDBOUND AND APPEARS CACHEXIC. ON AIR MATTRESS. BLANCHABLE ERYTHEMA ON BUTTOCK W OPTIFOAM NOTED. OPTIFOAM TO BONY PROMINENCES ON SACRAL AND BACK NOTED. IV SITE TO NAV INFUSING PPN AT 80 ML/HR W NO S/S OF INFILTRATON NOTED. BED IN LOWEST POSITION, CALL LIGHT WITHIN REACH. WILL CONTINUE TO MONITOR.
[2019-11-19 07:26] LABS: PLATELET COUNT 212 x10^3mcL (130-400)
[2019-11-19 07:36] LABS: RED CELL DISTRIBUTION WIDTH 17.1 % (11.5-14.5)
[2019-11-19 07:59] LABS: CALCIUM 7.5 mg/dL (8.5-10.1); CARBON DIOXIDE 23.3 mmol/L (21-32); CHLORIDE SERUM 108 mmol/L (98-107); CREATININE SERUM 0.5 mg/dL (0.6-1.0); GLUCOSE SERUM 80 mg/dL (74-106); MAGNESIUM 2.2 mg/dL (1.8-2.4); PHOSPHOROUS 2.8 mg/dL (2.5-4.9); POTASSIUM SERUM 3.7 mmol/L (3.5-5.1); SODIUM SERUM 142 mmol/L (136-145)
[2019-11-19 11:41] LABS: BAND NEUTROPHIL 2 % (0-10); MONOCYTE 5 % (0-7); SEGMENTED NEUTROPHILS 87 % (37-75); rbc morphology (normal/abnorm) ABNORMAL (NORMAL)
--- NOTE | 2019-11-19 12:26 | NUR ---
RONEL MCGILL MADE AWARE OF H/H 6.11/22 AND REQUESTED FOR AN ORDER TO CHANGE SCANLON CATHETER
--- NOTE | 2019-11-19 13:00 | NUR ---
TALKED TO RONEL MCGILL REGARDING PT IS ON PPN AND IF SHE WOULD LIKE TO PLACE HER ON A SLIDING SCALE. LAST BS LEVEL WAS 80 MG/DL SO MD SAID ITS OKAY FOR PATIENT TO NOT BE ON SLIDING SCALE
[2019-11-19 13:15] VITALS: BP 118/72
--- NOTE | 2019-11-19 17:12 | NUR ---
MIDLINE TO JESENIA PLACED BY PICC LINE RN.
--- NOTE | 2019-11-19 17:43 | NUR ---
PT WAS SEEN FOR DYSPHAGIA. PT WAS ABLE TO SAFELY SWALLOW PUREE DIET WITH THIN LIQUID WITHOUT S/S OF ASPIRATION. RECOMMENDATION PUREE DIET WITH THIN LIQUID 1:1 SUPERVISION SMALL BITES AND SIPS ONLY.
[2019-11-19 18:07] LABS: RED BLOOD CELLS 2.1 M/mm3 (4.10-5.10)
[2019-11-19 18:17] LABS: IRON 8 ug/dL (50-170); TOTAL IRON BINDING CAPACITY 82 ug/dL (250-450)
[2019-11-19 18:48] VITALS: BP 120/78
--- NOTE | 2019-11-19 19:30 | NUR ---
REC'D PT FROM DAY NURSE. PT RESTING IN BED. ORIENTED TO SELF AND PLACE. FOLLOWS COMMANDS. SPEECH CLEAR. TELE 49. DENIES CP, DIZZINESS, OR PALPITATIONS. DENIES RESP DISTRESS OR SOB. BREATHING EVEN/UNLABORED ON 4L NC. C/O PRODUCTIVE COUGH WITH LIGHT BROWN SPUTUM. PT HAS DRY LIPS. ORAL CARE PROVIDED TOLERATED AND APPLIED ORAL MOISTURIZER. NO EDEMA NOTED. ABD SOFT/FLAT. DENIES ABD PAIN, TENDERNESS, OR N/V. SCANLON DRAINING YELLOW URINE TO GRAVITY. GEN WEAKNESS. PASSIVE ROM. REPOSITIONING TOLERATED FOR COMFORT. PICC TO JESENIA, SITE WNL. IV TO NAV PATENT AND INFUSING. CALL LIGHT WITHIN REACH, BED AT LOWEST POSITION, BED ALARM ON. WILL CONTINUE TO MONITOR.
--- NOTE | 2019-11-19 19:46 | NUR ---
PT RESTING IN BED WITHOUT APPARENT DISTRESS. NO SIGNIFICANT CHANGES NOTED. WILL ENDORSE CARE TO NEXT SHIFT
--- NOTE | 2019-11-19 20:27 | NUR ---
SPOKE TO PT'S SISTER AND NEXT OF KIN, INOCENCIO HUMMEL [phone], VIA TELPHONE. PER INOCENCIO, NO BLOOD TRANSFUSIONS. OKAY TO CHANGE SCANLON CATHETER AND NO ACCUCHECKS DESPITE PT BEING ON PPN. ALSO CONFIRMED PLAN TO SEND PATIENT HOME ON FRIDAY WITH [facility] TO EVALUATE THE PT AT HOME. DR IVELISSE DIEGO.
--- NOTE | 2019-11-19 21:00 | NUR ---
DR. OVIEDO MADE AWARE OF INOCENCIO'S REFUSAL OF BLOOD. NO CHANGES IN ORDERS.
[2019-11-19 21:51] VITALS: BP 125/71
--- NOTE | 2019-11-19 22:10 | NUR ---
SCANLON CARE PROVIDED. SCANLON REMOVED AND SWITCHED. PT TOLERATED WELL. DRAINING YELLOW URINE TO GRAVITY.
--- NOTE | 2019-11-20 00:53 | NUR ---
PT RESTING IN BED WITH EYES CLOSED. NO SIGNS OF DISTRESS OR PAIN NOTED. BREATHING EVEN/UNLABORED ON 4L NC. CALL LIGHT WITHIN REACH, BED AT LOWEST POSITION. WILL CONTINUE TO MONITOR.
--- NOTE | 2019-11-20 05:31 | NUR ---
PT RESTING IN BED WITH EYES CLOSED. NO SIGNS OF DISTRESS OR PAIN NOTED. BREATHING EVEN/UNLABORED ON RA. AWAKENS WITH VERBAL STIMULI. SCANLON CARE PROVIDED. PPN INFUSING @ 80 ML/HR. CALL LIGHT WITHIN REACH, BED AT LOWEST POSITION. WILL ENDORSE TO DAY NURSE.
[2019-11-20 06:26] VITALS: BP 101/62
--- NOTE | 2019-11-20 07:53 | NUR ---
RECIEVED REPORT FROM [facility] NURSE. PATIENT IS ON STANDARD PRECAUTIONS. UPON ASSESSMENT PATIENT'S FINGERS WERE CYANOTIC. OXYGEN SATURATION OBTAINED AND ON 10 LITER NASAL CANNULA OXYGEN SATURATION WAS SUSTAINED IN THE 50's. NASAL CANNULA REMOVED AND REPLACED WITH 15 LITER NON REBREATHER. PATIENT SATURATING AT 90%. ON THE 15 LITER NON REBREATHER. PATIENT IS DNR. SAFETY PRECAUTIONS IN PLACE. CALL LIGHT WITHIN REACH. WILL CONTINUE TO PROVIDE CARE FOR PATIENT.
[2019-11-20 08:50] VITALS: BP 156/75
[2019-11-20 13:40] VITALS: BP 157/85
--- NOTE | 2019-11-20 14:23 | NUR ---
Follow-up Nutrition Assessment: 239B FEDE ROMEO Dx: UTI, COPD, Dehydration, r/o COVID-19 PMHx: UTI, COPD, Sjogren's syndrome, raynaud's disease, osteoperosis Labs: (11/18) BG 80L, BUN 29H, Cr 0.5L, phos: 2.8WNL, H/H 6.7/21L, Cl: 108H, ca: 7.5L Meds: Decadron, Megace, Remeron, Rocephin, Theragran, Vitamin C, Zinc sulfate, Zithromax, Benadryl, Lasix, megace, Pepcid, NaCl, TPN (80 mL/hr), tylenol PRN meds: Humulin, Ventolin, Zofran Diet: puree texture with thin liquids, TPN: 80 mL/hr PO intake: no nutrition flowsheets for puree diet, Weights: (11/16) 60#/27kg Edema: none noted per nursing assessment 11/18 Last BM: 11/18 Skin: scattered ecchymosis BUE and chest, Opti foam to buttocks CDI Ulysses: [address] (11/13): Per progress note 11/12, pt's hypoglycemia has improved since yesterday, was given D10. Pt was slightly hypokalemic and 10meq potassium was given. PPN is ordered to address low kcal intake. Doctor to talk to family about possible ocean transportation intermediary TPN/PEG tube placement. Psych consulted for possible eating disorder. SW spoke to patient's sister who claims pt has unreasonable fear of all kinds of food and refuses to eat anything. Pt was like this at [facility]. Per Speech therapist note 11/11: pt seen for dysphagia and was given trial of pureed diet and was pocketing food and had difficulty with bolus manipulation. Recommend: NPO and alternate mode of feeding in consultation with physician. RD Note (11/16): Per progress note (11/15), pt currently on 5L NC, and pt failed swallow evaluation, so pt is still pending PEG tube. Pt was lying in bed during bedside visit. Pt first refused to talk to RDN and said she's vegan. Pt changed her mind and started responding to RD. Per pt, she did not have any GI distress, but she felt dizzy. Pt appeared to be confused, and pt reported her weight being six pounds. During follow-up assessment, signs of muscle wasting was observed in pt's [place] region and Clavicle region. Consult received to assess and increase pt's PPN d/t low blood sugar. RD note (11/20/19): Poor appetite per pt's primary nurse, per pt's primary nurse the MD wants the pt on a PO diet and TPN, pt's primary nurse was busy when called and could not talk on the phone any longer. Pt's weight at time of visit (bed scale) was 81.2 lbs/36.9 kg. Upon observation, the pt has severe muscle and fat loss, clavicles are protruding, temples are sunken in, pt appears very weak, pt was asleep at time of visit, PN running at goal rate Estimated Nutritional Needs Based on ideal body weight of 41 kg. Energy: 3815-7274 kcal/d (30-35 kcal/kg for underweight status) Protein: 62-82gm/d (1-.5-2.0gm/kg for underweight status) Fluid: 1230-1435mL/d (1 mL/kcal) or per MD. Nutrition Diagnosis: (ongoing) 1. Swallowing difficulty related to pocketing food and having difficulty with bolus manipulation as evidenced by pt on pureed diet (ongoing, modified) 2. Disordered eating pattern related to unreasonable fear of all kinds of food as evidenced by BMI: 12.5 and refusing to eat anything. Intervention: 1. Continue PPN rate to 80ml/hr as tolerated. PPN D10%, AA 4.25% at 80ml/hr will provide a volume of 1920ml, 979kcal, 82g protein and GIR: 4.9mg/kg/min. This will meet 80% of estimated kcal needs and 100% of estimated protein needs. 2. Continue puree diet with thin liquids, (Recommend texture and consistency recommended by EMBEDDED SOFTWARE ENGINEER) per MD recommendation There is a still a concern for refeeding syndrome. Pt's electrolytes will be monitor closely. Monitor/Evaluate: Goal: Have pt meet at least 75% of estimated needs via nutrition support and PO diet (met, ongoing goal) Monitor: Nutrition support tolerance, PO intake, Labs (glucose, phosphorus, potassium, magnesium), GI function F/U in 2-3 days as high risk 11/22-
--- NOTE | 2019-11-20 14:29 | NUR ---
1. Continue PPN rate to 80ml/hr as tolerated. PPN D10%, AA 4.25% at 80ml/hr will provide a volume of 1920ml, 979kcal, 82g protein and GIR: 4.9mg/kg/min. This will meet 80% of estimated kcal needs and 100% of estimated protein needs. 2. Continue puree diet with thin liquids, (Recommend texture and consistency recommended by DIRECTOR STATE PHARMACY)
[2019-11-20 16:40] VITALS: BP 152/78
--- NOTE | 2019-11-20 18:05 | NUR ---
PATIENT IS CURRENTLY AWAKE ALERT AND ORIENTED X 4. PATIENT IS ON TELEMETRY MONITORING AND CONTINOUS PULSE OXYMETRY. PATIENT IS CURRENTLY ON 15 LITER NON REBREATHER FOR OXYGEN SUPPORT AND IS SATURATING AT 89%. SS TO ARRANGE HOME HEALTH EVALUATION. TPN CURRENTLY INFUSING TO JESENIA PICC LINE. SAFETY PREAUTIONS IN PLACE. CALL LIGHT WITHIN REACH. WILL ENDORSE ALL FURTHER CARE TO THE NOC NURSE.
--- NOTE | 2019-11-20 19:20 | NUR ---
REC'D PT FROM DAY NURSE. PT RESTING IN BED. ORIENTED TO SELF AND TIME. REORIENTED TO PLACE. FOLLOWS COMMANDS. SPEECH CLEAR. TELE 49. DENIES CP, DIZZINESS, OR PALPITATIONS. DENIES RESP DISTRESS OR SOB. BREATHING EVEN/SHALLOW/UNLABORED ON 15L NBR, SPO2 100%. TITRATED O2 DOWN TO 10L, SPO2 92%. NO EDEMA NOTED. R TOES PURPLE. L FINGERTIPS CYANOTIC. ABD SOFT. DENIES ABD PAIN, TENDERNESS, OR N/V. SCANLON DRAINING YELLOW URINE TO GRAVITY. GEN WEAKNESS. PASSIVE FULL ROM. AIR MATTRESS IN PLACE. ECCHYMOSIS TO BUE AND CHEST. OPTIFOAM TO BACK AND SACRUM. DENIES PAIN AT THIS TIME. PICC TO JESENIA PATENT AND INFUSING PPN @ 80 ML/HR, SITE WNL. OTHER PORT FLUSHED AND PATENT WITHOUT BLOOD RETURN. IV TO NAV IN PLACE, LEAKING. WILL REMOVE. CALL LIGHT WITHIN REACH, BED AT LOWEST POSITION. WILL CONTINUE TO MONITOR. PT ANGRY AND WANTS TO GO HOME. PT SPOKE TO HER SISTER, INOCENCIO [phone], AND TOLD HER SHE DOES NOT WANT TO WAIT UNTIL TOMORROW TO BE DISCHARGED. INOCENCIO STATED SHE WILL TRY TO GET HER SISTER DISCHARGED TONIGHT.
--- NOTE | 2019-11-20 20:33 | NUR ---
SPOKE TO DR. OVIEDO. MADE AWARE OF PT'S SISTER'S (INOCENCIO) REQUEST TO DISCHARGE THE PATIENT INOCENCIO WORKING WITH [facility] NURSE, CYNDEE [phone], TO ARRANGE TRANSPORT SERVICES. RESIDNET AGREEABLE TO DISCHARGE- AWAITING FOR DISCHARGE ORDERS.
[2019-11-20 20:34] VITALS: BP 152/78
--- NOTE | 2019-11-20 21:35 | NUR ---
REC'D CALL FROM INOCENCIO. STATED SHE WILL WAIT UNTIL TOMORROW FOR THE PATIENT TO BE DISCHARGED. DR. CARRANZA NOTIFIED.
[2019-11-20 21:41] VITALS: BP 126/79
--- NOTE | 2019-11-20 23:50 | NUR ---
ASSISTED PT IN EXPELING PLEGM BY SUCTIONING. DENIES RESPIRATORY DISTRESS, SPO2 HIGH 80'S ON NON REBREATHER, INCREASED O2 TO 12 L CURRENTLY SATURATING 92%.
--- NOTE | 2019-11-21 01:23 | NUR ---
PT AWAKE AND RESTING IN BED. MASK OFF. APPLIED NONREBREATHER MASK AND ENCOURAGED PT TO KEEP IT ON TO PROMOTE OXYGENATION, SPO2 93% ON 12 L. TELE READING HR 120. DENIES PALPITATIONS. WILL CONTINUE TO MONITOR.
--- NOTE | 2019-11-21 03:09 | NUR ---
PT RESTING IN BED WITH EYES CLOSED. NO SIGNS OF DISTRESS OR PAIN NOTED. BREATHING EVEN/UNLABORED ON 12L NONREBREATHER. SPO2 98%. HR 119. CALL LIGHT WITHIN REACH, BED AT LOWEST POSITION, BED ALARM ON. WILL CONTINUE TO MONITOR.
[2019-11-21 05:37] VITALS: BP 125/78
--- NOTE | 2019-11-21 05:54 | NUR ---
PT RESTING IN BED WITH EYES CLOSED. MASK OFF. REAPPLIED NBR MASK AND ENCOURAGED TO KEEP ON TO PROMOTE OXYGENATION. SPO2 100% ON 12L. TITRATED TO 10L, SPO2 95%. NO SIGNIFICANT CHANGES DURING SHIFT. PENDING DISCHARGE TODAY. WILL ENDORSE TO DAY NURSE.
--- NOTE | 2019-11-21 07:44 | NUR ---
RECIEVED REPORT FROM [facility] NURSE. PATIENT IS CURRENTLY ON STANDARD PRECAUTIONS. PATIENT REMAINS ON 10 LITER NON REBREATHER, HOWEVER PATIENT INTERMITTENTLY REMOVES MASK. WILL ASSESS POSSIBILITY OF PLACING PATIENT ON OXYMIZER.. PPN CURRENTLY INFUSING TO JESENIA PICC LINE AT 80cc/HOUR. PATIENT TO POSSIBILY D/C HOME TO SISTER'S HOME PENDING HOSPICE EVALUATION. PATIENT IS CURRENTLY ON AN AIR MATTRESS. SAFETY PRECAUTIONS IN PLACE. CALL LIGHT WITHIN REACH. WILL CONTINUE TO PROVIDE CARE FOR PATIENT.
[2019-11-21 09:13] VITALS: BP 122/78
--- NOTE | 2019-11-21 15:30 | NUR ---
DISCHARGE PACKET, AND INSTRUCTIONS GIVEN TO [facility]. METAL ROOFING MECHANIC REMOVED AND RETURNED TO TELEMETRY STATION. JESENIA MIDLINE INTACT. SCANLON IN PLACE. PATIENT LEAVING WITH [facility] ON 10 LITER NON REBREATHER MASK. ALL QUESTIONS AND CONCERNS ADDRESSED.
== END 2019-11-21 15:49 | disposition hospice, home (50) | DRG 190 ==
LOC: ED 16:58 → DU 22:03
PROVIDERS: Emergency Medicine; Internal Medicine; ADMIT Family Medicine; ATTEND Family Medicine
PROC: 05H733Z Insertion of Infusion Device into Right Axillary Vein, Percutaneous Approach (ICD-10-PCS; principal; 2019-11-19)
PROC: B54MZZA Ultrasonography of Right Upper Extremity Veins, Guidance (ICD-10-PCS; 2019-11-19)
DX: J44.1 Chronic obstructive pulmonary disease with (acute) exacerbation (principal); E43 Unspecified severe protein-calorie malnutrition; N17.0 Acute kidney failure with tubular necrosis; Z68.1 Body mass index [BMI] 19.9 or less, adult; N39.0 Urinary tract infection, site not specified; R06.03 Acute respiratory distress; E16.2 Hypoglycemia, unspecified; Z20.828 Contact with and (suspected) exposure to other viral communicable diseases; Z66 Do not resuscitate; Z88.6 Allergy status to analgesic agent; Z88.5 Allergy status to narcotic agent; Z88.8 Allergy status to other drugs, medicaments and biological substances; D64.9 Anemia, unspecified; D37.8 Neoplasm of uncertain behavior of other specified digestive organs; F32.9 Major depressive disorder, single episode, unspecified
CPT/HCPCS: 36600; 82962; 83880; 84439; 85378; 87804; 92526-GN; 92610-GN; A9540; G0378; J0456; J0696; J1100; J1200; J1610; J1642; J1644; J1940; J2060; J2250; J2310; J2405; J3010; J3480; J3490; J3535; J7030; J7040; J7042; J7131; Q0092; Q9967; U0003-CS